=== PATIENT | female | born 1970 | race Hispanic/Latino ===

== ENCOUNTER 2022-01-11 15:10 | Inpatient (IN) | payer OTHER ==
[~2022-01-11] VITALS: Ht 149.9 cm; Wt 81.2 kg
[2022-01-11 15:45] LABS: APPEARANCE,URINE SL CLOUDY (CLEAR); BILIRUBIN,URINE NEGATIVE (NEGATIVE); COLOR,URINE YELLOW (YELLOW); GLUCOSE, URINE (UA) NEGATIVE (NEGATIVE); KETONES,URINE NEGATIVE (NEGATIVE); LEUKOCYTE ESTERASE ,URINE MODERATE (NEGATIVE); NITRATE,URINE POSITIVE (NEGATIVE); OCCULT BLOOD,URINE SMALL (NEGATIVE); PROTEIN,URINE TRACE mg/dL (NEGATIVE); UROBILINOGEN,URINE 0.2 mg/dL (0.2-1.0)
[2022-01-11 15:55] LABS: BASOPHILS % (AUTO) 0.8 % (0.0-5.0); EOSINOPHILS % (AUTO) 0.7 % (0.0-8.0); HEMATOCRIT 41.1 % (36-48); LYMPHOCYTES % (AUTO) 17.7 % (21.0-51.0); MEAN CORPUSCULAR HEMOGLOBIN 28.3 pg (27.0-33.0); MEAN CORPUSCULAR HGB CONC 32.4 g/dL (32.0-36.0); MEAN CORPUSCULAR VOLUME 87.4 fL (79-99); MONOCYTES % (AUTO) 11.3 % (3.0-13.0); NEUTROPHILS % (AUTO) 68.6 % (40.0-77.0); PLATELET COUNT (AUTO) 196 K/uL (130-400); RED CELL DISTRIBUTION WIDTH 14.3 % (11.0-15.5)
[2022-01-11] MEDS ORDERED: 0.9%NACL 1000ML 1,000 ML IV ONE ×2 (16:00)
[2022-01-11] MEDS ORDERED: ONDANSETRON 4MG INJ IVP ONE (16:00)
[2022-01-11] MEDS ORDERED: MORPHINE 4 MG SYG IVP ONE ×2 (16:00→20:00)
[2022-01-11 16:03] LABS: CREATININE 1.4 mg/dL (0.5-1.5); POTASSIUM 4.4 mmol/L (3.5-5.1)
[2022-01-11 16:09] LABS: ALBUMIN 2.4 g/dL (3.5-5.0); BILIRUBIN,TOTAL 0.6 mg/dL (0.2-1.0); TOTAL PROTEIN, SERUM 7.6 g/dL (6.0-8.3)
[2022-01-11] MEDS ORDERED: IOHEXOL 350 MG/ML 100ML INFUS..BTL IV ONE (16:24)
[2022-01-11 16:30] LABS: BACTERIA,URINE Moderate /HPF (None Seen); WBC,URINE 26-50 /HPF (0-1)
[2022-01-11 16:31] LABS: SQUAMOUS EPITHELIAL CELL,UR Few /HPF (0-2); TRANSITIONAL EPI CELLS,URINE Rare /HPF (None Seen)
[2022-01-11] MEDS ORDERED: CEFTRIAXONE 1G VIAL IVP ONE (17:00)
[2022-01-11] MEDS ORDERED: DiphenhydrAMINE HCL 50 MG/ML VIAL IV PRN (21:00)
[2022-01-11] MEDS: CEFTRIAXONE 1G VIAL IV SCH (21:00)
[2022-01-11] MEDS ORDERED: MAG/ALUM/SIMETH 30 ML UDCUP PO PRN (21:00)
[2022-01-11] MEDS: 0.9%NACL 1000ML 1,000 ML IV SCH (21:00)
[2022-01-11] MEDS ORDERED: GUAIFENESIN-DM 200/20 MG 10 ML PO PRN (21:00)
[2022-01-11] MEDS ORDERED: LACTULOSE 20 GM/30 ML UDCUP PO PRN (21:00)
[2022-01-11] MEDS: FAMOTIDINE 20MG VIAL IV SCH (21:00)
[2022-01-11 23:40] VITALS: BP 131/82
[2022-01-12] MEDS ORDERED: 0.9% NACL 500ML IV.SOLN 500 ML IV SCH
[2022-01-12] MEDS: ONDANSETRON 4MG INJ IV PRN (00:58)
[2022-01-12 04:14] VITALS: BP 128/79
[2022-01-12] MEDS: 0.9%NACL 1000ML 1,000 ML IV SCH ×2 (05:30→18:05)
[2022-01-12 07:35] VITALS: BP 116/71
[2022-01-12] MEDS: KETOROLAC 15MG/ML VIAL (15MG/ML) IV PRN ×2 (10:15→20:38)
[2022-01-12 12:00] VITALS: BP 119/82
[2022-01-12 16:00] VITALS: BP 137/86
[2022-01-12] MEDS: MORPHINE 2 MG SYG IVP PRN (16:17)
[2022-01-12 19:50] VITALS: BP 138/84
[2022-01-12] MEDS: CEFTRIAXONE 1G VIAL IV SCH (20:32)
[2022-01-12] MEDS: FAMOTIDINE 20MG VIAL IV SCH (20:32)
[2022-01-13] VITALS: BP 135/82
[2022-01-13] MEDS: 0.9%NACL 1000ML 1,000 ML IV SCH ×3 (02:14→13:39)
[2022-01-13 04:19] VITALS: BP 128/79
[2022-01-13] MEDS: MORPHINE 2 MG SYG IVP PRN (07:30)
[2022-01-13 08:00] VITALS: BP 124/77
[2022-01-13] MEDS: MEROPENEM 500 MG VIAL IVP SCH ×2 (10:40→16:09)
[2022-01-13 12:00] VITALS: BP 145/84
[2022-01-13] MEDS ORDERED: TRAMADOL HCL 50 MG TABLET PO PRN (15:30)
[2022-01-13] MEDS ORDERED: ACETAMINOPHEN 325 MG TAB PO PRN (16:00)
[2022-01-13 16:11] VITALS: BP 118/77
[2022-01-13] MEDS ORDERED: IOHEXOL 350 MG/ML 100ML INFUS..BTL IV ONE (19:00)
[2022-01-13 19:01] LABS: INR 1.15 (0.85-1.15); PROTHROMBIN TIME 12.4 SEC (9.6-11.6)
[2022-01-13 19:02] LABS: PARTIAL THROMBOPLASTIN TIME 32.9 SEC (26.3-35.5)
[2022-01-13 20:50] VITALS: BP 140/77
[2022-01-13] MEDS: FAMOTIDINE 20MG VIAL IV SCH (21:12)
[2022-01-13] MEDS: BISACODYL 5 MG TABLET.DR PO SCH (21:12)
[2022-01-14 00:32] VITALS: BP 144/61
[2022-01-14] MEDS: MEROPENEM 500 MG VIAL IVP SCH ×3 (00:35→16:51)
[2022-01-14] MEDS: TRAMADOL HCL 50 MG TABLET PO PRN ×2 (00:43→15:29)
[2022-01-14 04:10] VITALS: BP 131/74
[2022-01-14 05:17] LABS: BASOPHILS % (AUTO) 0.7 % (0.0-5.0); EOSINOPHILS % (AUTO) 1.5 % (0.0-8.0); HEMATOCRIT 36.8 % (36-48); LYMPHOCYTES % (AUTO) 20.3 % (21.0-51.0); MEAN CORPUSCULAR HEMOGLOBIN 28.1 pg (27.0-33.0); MEAN CORPUSCULAR HGB CONC 31.8 g/dL (32.0-36.0); MEAN CORPUSCULAR VOLUME 88.2 fL (79-99); MONOCYTES % (AUTO) 9.1 % (3.0-13.0); NUCLEATED RED BLOOD CELLS 0.2 % (0.0-0.19); PLATELET COUNT (AUTO) 194 K/uL (130-400); RED BLOOD CELL COUNT(AUTO) 4.17 MIL/uL (4.00-5.50); RED CELL DISTRIBUTION WIDTH 14.9 % (11.0-15.5)
[2022-01-14 05:34] LABS: ALBUMIN 1.9 g/dL (3.5-5.0); BILIRUBIN,TOTAL 0.4 mg/dL (0.2-1.0); CREATININE 1.1 mg/dL (0.5-1.5); MAGNESIUM 1.8 mg/dL (1.80-2.40); PHOSPHORUS 3.7 mg/dL (2.5-4.9); POTASSIUM 4.1 mmol/L (3.5-5.1); TOTAL PROTEIN, SERUM 6.4 g/dL (6.0-8.3)
[2022-01-14 08:00] VITALS: BP 134/87
[2022-01-14] MEDS: BISACODYL 5 MG TABLET.DR PO SCH ×2 (09:00→20:03)
[2022-01-14 11:37] VITALS: BP 136/85
[2022-01-14 16:00] VITALS: BP 150/83
[2022-01-14] MEDS: ONDANSETRON 4MG INJ IV PRN (16:51)
[2022-01-14 20:00] VITALS: BP 137/87
[2022-01-14] MEDS: FAMOTIDINE 20MG VIAL IV SCH (20:03)
[2022-01-15] VITALS (12 sets, daily range): BP systolic 117–165; BP diastolic 75–94
[2022-01-15] MEDS: MEROPENEM 500 MG VIAL IVP SCH ×3 (00:04→17:14)
[2022-01-15] MEDS: ONDANSETRON 4MG INJ IV PRN ×2 (00:07→07:57)
[2022-01-15 05:13] LABS: BASOPHILS % (AUTO) 0.6 % (0.0-5.0); HEMATOCRIT 36.1 % (36-48); LYMPHOCYTES % (AUTO) 20.7 % (21.0-51.0); MEAN CORPUSCULAR HGB CONC 32.1 g/dL (32.0-36.0); MONOCYTES % (AUTO) 8.8 % (3.0-13.0); NEUTROPHILS % (AUTO) 65.4 % (40.0-77.0); PLATELET COUNT (AUTO) 200 K/uL (130-400); RED BLOOD CELL COUNT(AUTO) 4.15 MIL/uL (4.00-5.50); RED CELL DISTRIBUTION WIDTH 14.6 % (11.0-15.5); WHITE BLOOD COUNT (AUTO) 10.9 K/uL (4.8-10.8)
[2022-01-15 05:55] LABS: BILIRUBIN,TOTAL 0.6 mg/dL (0.2-1.0); CREATININE 1.2 mg/dL (0.5-1.5); TOTAL PROTEIN, SERUM 6.4 g/dL (6.0-8.3)
[2022-01-15] MEDS: BISACODYL 5 MG TABLET.DR PO SCH ×3 (07:57→21:11)
[2022-01-15] MEDS: FERRIC SUBSULFATE ML TP SCH ×2 (11:30→15:13)
[2022-01-15] MEDS ORDERED: PHARMACY COMMUNICATION MISC SCH (11:30)
[2022-01-15] MEDS ORDERED: SUCCINYLCHOLINE CHLORIDE 20 MG/ML 10 ML VIAL ONE (13:31)
[2022-01-15] MEDS ORDERED: DEXAMETHASONE SOD PHOSPHATE 10MG/ML 1ML VIAL ONE (13:31)
[2022-01-15] MEDS ORDERED: MIDAZOLAM HCL 1 MG/ML 2ML VIAL ONE (13:32)
[2022-01-15] MEDS ORDERED: ONDANSETRON 4MG INJ ONE (13:32)
[2022-01-15] MEDS ORDERED: GLYCOPYRROLATE 1 MG/5 ML SYRINGE ONE (13:33)
[2022-01-15] MEDS ORDERED: PROPOFOL 10 MG/ML 20ML VIAL IV ONE (13:33)
[2022-01-15] MEDS ORDERED: NEOSTIGMINE 5MG/5ML SYR IV ONE (13:33)
[2022-01-15] MEDS ORDERED: FENTANYL CITRATE PF 50 MCG/1 ML 2ML VIAL ONE (13:34)
[2022-01-15] MEDS ORDERED: ROCURONIUM 10MG/1ML SYR 10 MG/ML ML ONE (13:34)
[2022-01-15] MEDS ORDERED: LACTATED RINGERS 1000ML 1,000 ML IV ONE (14:46)
[2022-01-15] MEDS: TRAMADOL HCL 50 MG TABLET PO PRN (17:25)
[2022-01-15] MEDS: FAMOTIDINE 20MG VIAL IV SCH (21:11)
[2022-01-16] VITALS (7 sets, daily range): BP systolic 109–157; BP diastolic 62–82
[2022-01-16] MEDS: MEROPENEM 500 MG VIAL IVP SCH ×4 (00:12→23:59)
[2022-01-16 06:16] LABS: BASOPHILS % (AUTO) 0.2 % (0.0-5.0); HEMATOCRIT 40.3 % (36-48); LYMPHOCYTES % (AUTO) 15.3 % (21.0-51.0); MEAN CORPUSCULAR HEMOGLOBIN 27.8 pg (27.0-33.0); MEAN CORPUSCULAR HGB CONC 32.3 g/dL (32.0-36.0); MEAN CORPUSCULAR VOLUME 86.1 fL (79-99); MONOCYTES % (AUTO) 4.1 % (3.0-13.0); PLATELET COUNT (AUTO) 206 K/uL (130-400); RED BLOOD CELL COUNT(AUTO) 4.68 MIL/uL (4.00-5.50); RED CELL DISTRIBUTION WIDTH 14.6 % (11.0-15.5); WHITE BLOOD COUNT (AUTO) 9.3 K/uL (4.8-10.8)
[2022-01-16 06:44] LABS: ALBUMIN 2.1 g/dL (3.5-5.0); BILIRUBIN,TOTAL 0.5 mg/dL (0.2-1.0); CREATININE 0.9 mg/dL (0.5-1.5); POTASSIUM 4.4 mmol/L (3.5-5.1); TOTAL PROTEIN, SERUM 6.9 g/dL (6.0-8.3)
[2022-01-16] MEDS: BISACODYL 5 MG TABLET.DR PO SCH ×2 (09:00→19:50)
[2022-01-16] MEDS: TRAMADOL HCL 50 MG TABLET PO PRN (18:02)
[2022-01-16] MEDS: FAMOTIDINE 20MG VIAL IV SCH (19:49)
[2022-01-17] VITALS (10 sets, daily range): BP systolic 119–152; BP diastolic 79–99
[2022-01-17 06:18] LABS: INR 1.1 (0.85-1.15); PROTHROMBIN TIME 11.9 SEC (9.6-11.6)
[2022-01-17 06:20] LABS: PARTIAL THROMBOPLASTIN TIME 28.2 SEC (26.3-35.5)
[2022-01-17] MEDS: MEROPENEM 500 MG VIAL IVP SCH ×3 (08:17→23:19)
[2022-01-17] MEDS: BISACODYL 5 MG TABLET.DR PO SCH ×2 (08:17→20:32)
[2022-01-17] MEDS: TRAMADOL HCL 50 MG TABLET PO PRN (12:20)
[2022-01-17] MEDS ORDERED: MORPHINE 2 MG SYG ONE (13:12)
[2022-01-17] MEDS ORDERED: LIDOCAINE HCL 1% MDV 50ML VIAL ONE (15:28)
[2022-01-17] MEDS: MORPHINE 2 MG SYG IVP PRN ×2 (18:34→23:19)
[2022-01-17] MEDS: FAMOTIDINE 20MG VIAL IV SCH (20:32)
[2022-01-18 03:17] VITALS: BP 105/65
[2022-01-18 08:28] VITALS: BP 125/78
[2022-01-18] MEDS: MEROPENEM 500 MG VIAL IVP SCH ×2 (08:31→16:09)
[2022-01-18] MEDS: BISACODYL 5 MG TABLET.DR PO SCH (08:31)
[2022-01-18] MEDS: ONDANSETRON 4MG INJ IV PRN (09:17)
[2022-01-18 12:56] VITALS: BP 124/83
[2022-01-18] MEDS ORDERED: LIDOCAINE HCL 1% MDV 50ML VIAL ONE (14:29)
[2022-01-18] MEDS ORDERED: HEPARIN 1,000 UNIT VIAL ONE (14:30)
[2022-01-18] MEDS ORDERED: FENTANYL CITRATE PF 50 MCG/1 ML 2ML VIAL ONE (14:31)
[2022-01-18] MEDS ORDERED: MIDAZOLAM HCL 1 MG/ML 2ML VIAL ONE (14:31)
[2022-01-18] MEDS ORDERED: BISA5TAB12 PO (14:43)
[2022-01-18] MEDS ORDERED: TRAM50TA4 PO (14:43)
[2022-01-18] MEDS ORDERED: OCTYL 2-CYANOACRYLATE 1 EACH TP ONE (14:57)
[2022-01-18 17:03] VITALS: BP 128/91
[2022-01-18] MEDS: MORPHINE 2 MG SYG IVP PRN (17:43)
== END 2022-01-18 18:45 | disposition home or self-care (01) | DRG 744 ==
LOC: EDH 15:10 → EDHIP 15:11 → 3AH 23:02
PROVIDERS: ADMIT Internal Medicine; ATTEND Internal Medicine
PROC: 0UBC7ZX Excision of Cervix, Via Natural or Artificial Opening, Diagnostic (ICD-10-PCS; principal; 2022-01-15 14:58)
PROC: 02H633Z Insertion of Infusion Device into Right Atrium, Percutaneous Approach (ICD-10-PCS; 2022-01-18)
PROC: B5181ZA Fluoroscopy of Superior Vena Cava using Low Osmolar Contrast, Guidance (ICD-10-PCS; 2022-01-18)
PROC: B548ZZA Ultrasonography of Superior Vena Cava, Guidance (ICD-10-PCS; 2022-01-18)
DX: C53.9 Malignant neoplasm of cervix uteri, unspecified (principal); E43 Unspecified severe protein-calorie malnutrition; C78.7 Secondary malignant neoplasm of liver and intrahepatic bile duct; N39.0 Urinary tract infection, site not specified; N17.9 Acute kidney failure, unspecified; Z16.12 Extended spectrum beta lactamase (ESBL) resistance; Z20.822 Contact with and (suspected) exposure to COVID-19; I10 Essential (primary) hypertension; B96.20 Unspecified Escherichia coli [E. coli] as the cause of diseases classified elsewhere; N93.9 Abnormal uterine and vaginal bleeding, unspecified; Z87.891 Personal history of nicotine dependence
CPT/HCPCS: 36415; 36561; 47000; 71045; 71260; 74177; 76856; 76942; 77001; 80053; 81001; 82378; 83605; 83690; 83735; 84100; 84145; 84484; 85025; 85610; 85730; 86304; 86316; 86850; 86900; 86901; 87040; 87077; 87088; 87186; 87635; 87804; 93005; 99156; 99157; A4351; A4606; C1788; G0378; J0330; J0696; J1100; J1644; J1885; J2185; J2250; J2270; J2405; J2704; J2710; J3010; J3490; J7030; J7120; Q9967